=== PATIENT | female | born 1950 | race Caucasian/White ===

== ENCOUNTER 2016-10-22 08:24 | Outpatient (RCR) | payer MEDICARE ==
[~2016-10-22 08:24] MED LIST: ESOM20CA PO; LISI10TA2 PO; METF500T4 PO; PARO20TA4 PO
--- OUTSIDE RECORDS SUMMARY | 2016-10-22 08:27 | XMS REPORT | Continuity of Care Document ---
Author Author [facility] Organization [facility] Address Unknown Phone Unavailable Care Team Providers Care Cotton Wringer Name Role Phone JOY FLOR MD PCP Insurance Providers Payer Name Policy Number Subscriber Name Relationship Wps Medicare [id number] Gabrielle Spears 16 Self / Same As Patient Blue Cross [facility] Supp [id number] Gabrielle Spears 16 Self / Same As Patient Advance Directives Directive Response Recorded Date/Time Advance Directives No 01/05/15 3:02am Resuscitation Status Full Code 01/05/15 3:02am Problems Medical Problems Problem Onset Date Status Anxiety attack Unknown Active Anxiety attack Unknown Active Medications Medication Dose Route Sig Days/Qty Instructions Order Date Discontinued Date Status Metformin Hcl 250 Mg PO BEDTIME 15 Qty 01/05/15 Active Paroxetine Hcl 20 Mg PO DAILY 30 Qty 01/05/15 Active Lisinopril 10 Mg PO DAILY 90 Qty 01/05/15 Active Esomeprazole Magnesium 1 Cap PO NEEDED 30 Qty 01/05/15 Active Social History Social History Problem Response Recorded Date/Time Alcohol Use Denies Use 01/05/2015 3:02am Recreational Drug Use No 01/05/2015 3:02am Recent Foreign Travel No 01/05/2015 3:02am Recent Infectious Disease Exposure No 01/05/2015 3:02am Hospitalization with Isolation Denies 01/05/2015 3:02am Smoking Status Never a Smoker 01/05/2015 3:02am Do you dip or chew tobacco? No 01/05/2015 3:02am Query Response Start Date Stop Date Smoking Status Never a Smoker Hospital Discharge Instructions No hospital discharge instructions. Plan of Care No plan of care. Functional Status No functional status results. Allergies, Adverse Reactions, Alerts Allergen Type Severity Reaction Status Last Updated Oxycodone Allergy Mild NAUSEA Active 01/05/15 Acetaminophen Allergy Mild NAUSEA Active 01/05/15 Immunizations No immunization records. Vital Signs Acute Vital Signs Vital Response Date/Time Temperature (Fahrenheit) 97.1 degrees F (97.6 - 99.5) Temperature (Calculated Celsius) 36.46200 degrees C (36.4 - 37.5) Temperature Source Temporal Pulse Rate (adult) 81 bpm (60 - 90) Respiratory Rate 16 bpm (12 - 24) O2 Sat by Pulse Oximetry 96 % (88 - 100) Blood Pressure 139/79 mm Hg Pain Pain Intensity 5 Height (Feet) 5 feet Height (Inches) 7 inches Height (Calculated Centimeters) 170.861589 cm Weight (Pounds) 223 pounds Weight (Calculated Kilograms) 101.685021 kilograms Calculated BMI 34.92 Results Laboratory Results Test Name Result Units Flags Reference Collection Date/Time Result Date/ Time Comments White Blood Count 9.1 10^3/uL 4.3-11.0 01/05/2015 2:55am 01/05/2015 3: 10am Red Blood Count 4.80 10^6/uL 4.35-5.85 01/05/2015 2:55am 01/05/2015 3: 10am Hemoglobin 13.5 G/DL 11.5-16.0 01/05/2015 2:55am 01/05/2015 3:10am Hematocrit 41 % 35-52 01/05/2015 2:5501/05/2015 3:10am Mean Corpuscular Volume 85 FL 80-99 01/05/2015 2:5501/05/2015 3: 10am Mean Corpuscular Hemoglobin 28 PG 25-34 01/05/2015 2:55am 01/05/2015 3: 10am Mean Corpuscular Hemoglobin Concent 33 G/DL 32-36 01/05/2015 2:55am 01/2015 3:10am Red Cell Distribution Width 13.7 % 10.0-14.5 01/05/2015 2:55am 2014 3:10am Platelet Count 206 10^3/uL 130-400 01/05/2015 2:5501/05/2015 3:10am Mean Platelet Volume 11.3 FL H 7.4-10.4 01/05/2015 2:5501/05/2015 3: 10am Neutrophils (%) (Auto) 37 % L 42-75 01/05/2015 2:5501/05/2015 3:10am Lymphocytes (%) (Auto) 51 % H 12-44 01/05/2015 2:5501/05/2015 3:10am Monocytes (%) (Auto) 8 % 0-12 01/05/2015 2:5501/05/2015 3:10am Eosinophils (%) (Auto) 3 % 0-10 01/05/2015 2:5501/05/2015 3:10am Basophils (%) (Auto) 1 % 0-10 01/05/2015 2:5501/05/2015 3:10am Neutrophils # (Auto) 3.4 X 10^3 1.8-7.8 01/05/2015 2:5501/05/2015 3: 10am Lymphocytes # (Auto) 4.6 X 10^3 H 1.0-4.0 01/05/2015 2:5501/05/2015 3: 10am Monocytes # (Auto) 0.8 X 10^3 0.0-1.0 01/05/2015 2:5501/05/2015 3: 10am Eosinophils # (Auto) 0.3 10^3/uL 0.0-0.3 01/05/2015 2:5501/05/2015 3 :10am Basophils # (Auto) 0.1 10^3/uL 0.0-0.1 01/05/2015 2:5501/05/2015 3: 10am Urine Color YELLOW 01/05/2015 3:00am 01/05/2015 3:15am Urine Clarity SLIGHTLY CLOUDY 01/05/2015 3:00am 01/05/2015 3:15am Urine pH 6 5-9 01/05/2015 3:00am 01/05/2015 3:15am Urine Specific [place] 1.020 1.016-1.022 01/05/2015 3:00am 2014 3:15am Urine Protein 2+ * NEGATIVE 01/05/2015 3:00am 01/05/2015 3:15am Urine Glucose (UA) NEGATIVE NEGATIVE 01/05/2015 3:00am 01/05/2015 3: 15am Urine RBC (Auto) NEGATIVE NEGATIVE 01/05/2015 3:00am 01/05/2015 3: 15am Urine Ketones NEGATIVE NEGATIVE 01/05/2015 3:00am 01/05/2015 3:15am Urine Nitrite NEGATIVE NEGATIVE 01/05/2015 3:00am 01/05/2015 3:15am Urine Bilirubin NEGATIVE NEGATIVE 01/05/2015 3:00am 01/05/2015 3: 15am Urine Urobilinogen NORMAL MG/DL NORMAL 01/05/2015 3:00am 01/05/2015 3: 15am Urine Leukocyte Esterase 1+ * NEGATIVE 01/05/2015 3:00am 01/05/2015 3: 15am Urine RBC RARE /HPF 01/05/2015 3:00am 01/05/2015 3:15am Urine WBC RARE /HPF 01/05/2015 3:00am 01/05/2015 3:15am Urine Bacteria NEGATIVE /HPF 01/05/2015 3:00am 01/05/2015 3:15am Urine Squamous Epithelial Cells 10-25 /HPF * 01/05/2015 3:00am 2014 3:15am Urine Crystals NONE /LPF 01/05/2015 3:00am 01/05/2015 3:15am Urine Casts NONE /LPF 01/05/2015 3:00am 01/05/2015 3:15am Urine Mucus NEGATIVE /LPF 01/05/2015 3:00am 01/05/2015 3:15am Urine Culture Indicated NO 01/05/2015 3:00am 01/05/2015 3:15am Sodium Level 140 MMOL/L 135-145 01/05/2015 2:55am 01/05/2015 3:26am Potassium Level 3.6 MMOL/L 3.6-5.0 01/05/2015 2:55am 01/05/2015 3:26am Chloride Level 107 MMOL/L 98-107 01/05/2015 2:55am 01/05/2015 3:26am Carbon Dioxide Level 22 MMOL/L 21-32 01/05/2015 2:55am 01/05/2015 3: 26am Blood Urea Nitrogen 20 MG/DL H 7-18 01/05/2015 2:5501/05/2015 3:26am Creatinine 0.89 MG/DL 0.60-1.30 01/05/2015 2:5501/05/2015 3:26am BUN/Creatinine Ratio 22 01/05/2015 2:5501/05/2015 3:26am Estimat Glomerular Filtration Rate > 60 01/05/2015 2:552014 3:26am GFR INTERPRETIVE DATA UNITS FOR ESTIMATED GFR (eGFR): mL/min/1.73 M2 REFERENCE RANGE FOR ESTIMATED GFR (eGFR) eGFR NORMAL eGFR >60 MODERATELY DECREASED eGFR 30-59 SEVERLY DECREASED eGFR 15-29 KIDNEY FAILURE <15 (OR DIALYSIS) Glucose Level 162 MG/DL H 70-105 01/05/2015 2:5501/05/2015 3:26am Calcium Level 11.1 MG/DL H 8.5-10.1 01/05/2015 2:5501/05/2015 3:26am Total Bilirubin 0.5 MG/DL 0.1-1.0 01/05/2015 2:5501/05/2015 3:26am Alkaline Phosphatase 87 U/L 40-136 01/05/2015 2:55am 01/05/2015 3:26am Aspartate Amino Transf (AST/SGOT) 23 U/L 5-34 01/05/2015 2:552014 3:26am Alanine Aminotransferase (ALT/SGPT) 32 U/L 0-55 01/05/2015 2:5501/05 3:26am Total Protein 7.6 G/DL 6.4-8.2 01/05/2015 2:5501/05/2015 3:26am Albumin 4.4 G/DL 3.2-4.5 01/05/2015 2:55am 01/05/2015 3:26am Amylase Level 66 U/L 25-125 01/05/2015 2:55am 01/05/2015 3:26am Lipase 28 U/L 8-78 01/05/2015 2:55am 01/05/2015 3:26am Procedures No known history of procedures. Encounters Encounter Location Date/Time Registered Emergency Room [facility] 01/05/15 2:51am Registered Clinic [facility] 12/06/14 9:03am Recent Diagnosis
== END 2017-01-20 | disposition home or self-care (01) ==
LOC: ONC 08:24
PROVIDERS: ATTEND Radiology Radiation Oncology
DX: C73 Malignant neoplasm of thyroid gland (principal)
CPT/HCPCS: 99214

== ENCOUNTER → 2016-11-15 | Outpatient (CLI) | payer MEDICARE ==
--- OUTSIDE RECORDS SUMMARY | 2016-11-15 14:55 | XMS REPORT | Continuity of Care Document ---
Author Author [facility] Organization [facility] Address Unknown Phone Unavailable Care Team Providers Care Pattern Technician Name Role Phone JOY FLOR MD PCP Insurance Providers Payer Name Policy Number Subscriber Name Relationship Wps Medicare [id number] Gabrielle Spears 16 Self / Same As Patient Blue Cross [facility] Supp [id number] Gabrielle Spears 16 Self / Same As [...] F (97.6 - 99.5) Temperature (Calculated Celsius) 36.74140 degrees C (36.4 - 37.5) Temperature Source Temporal Pulse Rate (adult) 81 bpm (60 - 90) Respiratory Rate 16 bpm (12 - 24) O2 Sat by Pulse Oximetry 96 % (88 - 100) Blood Pressure 139/79 mm Hg Pain Pain Intensity 5 Height (Feet) 5 feet Height (Inches) 7 inches Height (Calculated Centimeters) 170.279712 cm Weight (Pounds) 223 pounds Weight (Calculated Kilograms) 101.837293 kilograms Calculated BMI 34.92 Results Laboratory Results [...] 5-9 01/05/2015 3:00am 01/05/2015 3:15am Urine Specific [place] 1.020 1.016-1.022 01/05/2015 3:00am 2014 3:15am Urine [...] Encounter Location Date/Time Registered Emergency Room [facility] 01/05/15 2:51am Registered Clinic [facility] 12/06/14 9:03am Recent Diagnosis
--- NOTE | 2016-11-17 08:39 | ECHOCARDIOGRAPHY REPORT ---
PROCEDURE PHYSICIAN: BRIELLE VELIZ DATE OF PROCEDURE: 11/15/2016 TWO DIMENSIONAL ECHOCARDIOGRAM REPORT PRIMARY PHYSICIAN: OTHER PHYSICIAN: REFERRING PHYSICIAN: Dr. Hastings and Joselyn Antonio APRN ORDERING PHYSICIAN: INDICATION FOR THE PROCEDURE: Heart murmur. MEASUREMENTS DERIVED VALUES LV DIAMETER (LAX) NORMALS NORMALS Diastolic 4.4 (3.6-5.2) Eject. Fract. 60% (60%+/-6%) Systolic (2.3-3.9) Diastolic Vol. % Shortening (0.22-0.42) Systolic Vol. Aortic Root IVS THICKNESS Diastolic 1 (0.6-1.1) LVPW THICKNESS Diastolic 1 (0.6-1.1) LA DIAMETER Systolic 3.2 (2.1-3.7) FINDINGS: 1. Technical quality is good. 2. The left ventricle is normal in size with normal contractility. Systolic function appeared to be normal. Estimated ejection fraction 60%. 3. The left atrium is normal in size. No clot or thrombus were seen within the left atrium. 4. The right atrium and right ventricle are normal in size. No clot or thrombus were seen within the right side. 5. Mitral valve is normal in morphology with mild mitral regurgitation noted by color Doppler by color Doppler flow. Doppler across the mitral valve showed E:A reversal which is an expected finding in patient of age 66. 6. Aortic valve leaflets were not well visualized. No significant aortic valve stenosis or regurgitation was seen. 7. Tricuspid valve is normal in morphology with mild tricuspid regurgitation noted by color Doppler flow. Doppler across tricuspid valve estimated pulmonary artery pressure of 5+ right atrial pressure. 8. Pulmonic valve is functioning normally. 9. No pericardial effusion. IN CONCLUSION: 1. Normal left ventricular size and systolic function. Estimated ejection fraction 60%. 2. Mild mitral and tricuspid regurgitation. 3. Estimated pulmonary artery pressure of 15 mmHg. Job ID: [id number] Dictated Date: 11/16/2016 15:50:25 Telephone Sex Worker Date: 11/17/2016 08:35:26 / andres
== END ==
LOC: CARD 14:53
PROVIDERS: ATTEND Nurse Practitioner Family
DX: R01.1 Cardiac murmur, unspecified (principal)
CPT/HCPCS: 93306

== ENCOUNTER → 2017-02-17 | Outpatient (CLI) | payer MEDICARE ==
--- NOTE | 2017-02-17 18:04 | Diagnostic Imaging Report ---
EXAMINATION: DEXA scan. INDICATION: Osteopenia. TECHNIQUE: Bone mineral density estimated based on dual energy radiography over the lumbar spine and femoral necks, was performed. FINDINGS: The lumbar spine T-score is -1. This is 13% decreased density measurement compared to 02/13/2015 exam. The lumbar spine density measurement is probably slightly exaggerated by the sclerotic degenerative changes. T-score over the left femoral neck is -1.3 and on the right side is -1.2. This is about 5% increased density measurement compared to the 02/13/2015 exam. IMPRESSION: Osteopenia. Dictated by: Dictated on workstation # [id number]
== END ==
LOC: RAD 08:10
PROVIDERS: ATTEND Internal Medicine Endocrinology, Diabetes & Metabolism
DX: M85.851 Other specified disorders of bone density and structure, right thigh (principal); Z78.0 Asymptomatic menopausal state
CPT/HCPCS: 77080

== ENCOUNTER → 2017-05-31 | Outpatient (CLI) | payer MEDICARE ==
--- NOTE | 2017-05-31 11:34 | Diagnostic Imaging Report ---
INDICATION: Screening. TECHNIQUE: Screening digital mammography was performed bilaterally with a Computer Aided Detection (CAD) system. COMPARISON: 11/20/2014. FINDINGS: There is a moderate amount of residual fibroglandular tissue bilaterally. There is a stable benign type calcification in the right breast. There is a well-circumscribed mass in the medial aspect of the left breast. There is no other dominant mass, spiculated lesion, or suspicious calcification identified. IMPRESSION: Well-circumscribed density in the medial aspect of the left breast. Further evaluation with spot compression views and ultrasound would be recommended. ACR BI-RADS Category 0: Incomplete. (Needs additional imaging evaluation). Result letter will be mailed to the patient. Note: At least 10% of breast cancer is not imaged by mammography. Dictated by: Dictated on workstation # [id number]
== END ==
LOC: RAD 08:55
PROVIDERS: ATTEND Nurse Practitioner Family
DX: Z12.31 Encounter for screening mammogram for malignant neoplasm of breast (principal); R92.8 Other abnormal and inconclusive findings on diagnostic imaging of breast
CPT/HCPCS: 77067

== ENCOUNTER → 2017-06-27 | Outpatient (CLI) | payer MEDICARE ==
--- NOTE | 2017-06-27 09:41 | Diagnostic Imaging Report ---
EXAMINATION: Left breast diagnostic mammogram with tomography. The current study was also evaluated with a Computer Aided Detection (CAD) system. INDICATION: Asymmetry in the medial aspect of the left breast. FINDINGS: A 5 mm focal asymmetry in the medial superior aspect of the left breast is seen and confirmed on tomography and focal compression views with circumscribed margins, in favor of benign etiology. IMPRESSION: Confirmed 5 mm circumscribed nodule in the medial superior aspect of the left breast. This is favored to be benign. An ultrasound evaluation is pending. ACR BI-RADS Category 0: Incomplete. (Needs additional imaging evaluation). Result letter will be mailed to the patient. Note: At least 10% of breast cancer is not imaged by mammography. Dictated by: Dictated on workstation # [id number]
--- NOTE | 2017-06-27 09:46 | Diagnostic Imaging Report ---
EXAMINATION: Left breast ultrasound. INDICATION: Left breast asymmetry FINDINGS: The medial aspect of the left breast was scanned with no underlying abnormality seen. IMPRESSION: Negative study. The 5 cm circumscribed nodule seen in the upper medial aspect of the left breast on mammography is likely benign. A 6 month followup mammogram is recommended to ensure stability. ACR BI-RADS Category 3: Probably benign findings. Dictated by: Dictated on workstation # [id number]
== END ==
LOC: RAD 08:49
PROVIDERS: ATTEND Nurse Practitioner Family
DX: N64.89 Other specified disorders of breast (principal)
CPT/HCPCS: 76642